=== PATIENT | male | born 1975 | race Caucasian/White ===

== ENCOUNTER 2021-09-04 16:57 | Emergency (ER) | payer OTHER, SELFPAY ==
[~2021-09-04] VITALS: Ht 175.3 cm; Wt 129.3 kg
[~2021-09-04 16:57] MED LIST: ASPI-1393 PO; HYDR25TA4 PO; LISI10TA PO
[2021-09-04 17:05] VITALS: BP_SYST 136
[2021-09-04] MEDS ORDERED: KETOROLAC TROMETHAMINE 60 MG/2 ML VIAL IM ONE (18:00)
[2021-09-04] MEDS ORDERED: IBUP-1971 PO (18:26)
[2021-09-04] MEDS ORDERED: MAGN296S30 PO (18:26)
[2021-09-04 18:34] VITALS: BP_SYST 148
== END 2021-09-04 18:34 | disposition home or self-care (01) ==
LOC: SED 16:57
DX: K59.00 Constipation, unspecified (principal); R10.13 Epigastric pain; I10 Essential (primary) hypertension
CPT/HCPCS: 96372; 99283; J1885